=== PATIENT | male | born 1980 | race African-American/Black ===

== ENCOUNTER 2019-08-27 11:24 | Emergency (ER) | payer SELFPAY ==
--- NOTE | 2019-08-27 12:21 | ER ---
Nurse's Notes [facility] Name: Carlton Hightower Age: 39 yrs Sex: Male : 1980 Arrival Date: 08/27/2019 Time: 11:25 Bed 10 Private MD: Diagnosis: Acute upper respiratory infection, unspecified;Fever, unspecified Presentation: 08/27 11:40 Presenting complaint: Patient states: Cough chest congestion , sneezing, and fever, sg reports having weakness that began yesterday, reports having sinus pain as well. Transition of care: patient was not received from another setting of care. Onset of symptoms was August 27, 2019. Risk Assessment: Do you want to hurt yourself or someone else? Patient reports no desire to harm self or others. Initial Sepsis Screen: Does the patient meet any 2 criteria? No. Patient's initial sepsis screen is negative. Does the patient have a suspected source of infection? No. Patient's initial sepsis screen is negative. Care prior to arrival: None. 11:40 Method Of Arrival: Ambulatory sg 11:40 Acuity: SAILAJA 4 sg Triage Assessment: 12:20 General: Appears in no apparent distress. Behavior is calm, cooperative. iw Historical: - Allergies: 11:41 No Known Allergies; sg - Home Meds: 11:41 None [Active]; sg - PMHx: 11:41 None; sg - PSHx: 11:41 None; sg - Immunization history:: Adult Immunizations not up to date. - Social history:: Smoking status: Patient uses tobacco products. - Ebola Screening: : Patient negative for fever greater than or equal to 101.5 degrees Fahrenheit, and additional compatible Ebola Virus Disease symptoms Patient denies exposure to infectious person Patient denies travel to an Ebola-affected area in the 21 days before illness onset No symptoms or risks identified at this time. - Family history:: not pertinent. Screenin:00 Abuse screen: Denies threats or abuse. Denies injuries from another. Nutritional iw screening: No deficits noted. Tuberculosis screening: No symptoms or risk factors identified. Fall Risk None identified. Assessment: 12:00 General: Appears in no apparent distress. iw 12:00 Pain: Denies pain. Neuro: Level of Consciousness is awake, alert, obeys commands, iw Oriented to person, place, time, situation, Moves all extremities. Full function. Cardiovascular: Patient's skin is warm and dry. Respiratory: Reports cough that is Airway is patent Respiratory effort is even, unlabored, Respiratory pattern is regular, symmetrical. Derm: Skin is intact, is healthy with good turgor. Musculoskeletal: Range of motion: intact in all extremities. Vital Signs: 11:40 Pulse 84 MON; Resp 18; Temp 98.7(TE); Pulse Ox 98% on R/A; Weight 65.77 kg; Height 5 sg ft. 4 in. (162.56 cm); 11:41 BP 145 / 90; sg 11:40 Body Mass Index 24.89 (65.77 kg, 162.56 cm) sg ED Course: 11:25 Patient arrived in ED. am2 11:39 Arm band placed on. sg 11:41 Triage completed. sg 12:00 Patient has correct armband on for positive identification. iw 12:02 Casandra Devries, RN is Primary Nurse. iw 12:10 Luis Alfredo Gallego MD is Attending Physician. [facility] 12:34 No provider procedures requiring assistance completed. Patient did not have IV access iw during this emergency room visit. Administered Medications: No medications were administered Outcome: 12:20 Discharge ordered by . poonam 12:34 Discharged to home ambulatory. iw 12:34 Condition: good 12:34 Discharge instructions given to patient, Instructed on discharge instructions, follow up and referral plans. medication usage, Demonstrated understanding of instructions, follow-up care, medications, Prescriptions given X 2. 12:35 Patient left the ED. iw Signatures: Jerome Gomez RN RN Luis Alfredo Gallego MD MD cha Williams, Irene, RN RN Dorothea Eastman am2 Corrections: (The following items were deleted from the chart) 18:13 18:12 General: Appears in no apparent distress. iw iw
--- NOTE | 2019-08-27 12:21 | EDPHYS ---
Physician Documentation [facility] Name: Carlton Hightower Age: 39 yrs Sex: Male : 1980 Arrival Date: 08/27/2019 Time: 11:25 Bed 10 Private MD: TOMAS Physician Luis Alfredo Gallego HPI: 08/27 12:16 This 39 yrs old Black Male presents to ER via Ambulatory with complaints of Runny Nose, poonam Fever. 12:16 The patient or guardian reports cough, flu symptoms, arthralgias, low-grade fever, poonam myalgias. Onset: The symptoms/episode began/occurred 1 day(s) ago. Severity of symptoms: At their worst the symptoms were mild, in the emergency department the symptoms are unchanged. Modifying factors: The symptoms are alleviated by nothing, the symptoms are aggravated by nothing. Associated signs and symptoms: Pertinent positives: fever, rhinorrhea, sore throat. The patient has experienced similar episodes in the past, a few times. Historical: - Allergies: 11:41 No Known Allergies; sg - Home Meds: 11:41 None [Active]; sg - PMHx: 11:41 None; sg - PSHx: 11:41 None; sg - Immunization history:: Adult Immunizations not up to date. - Social history:: Smoking status: Patient uses tobacco products. - Ebola Screening: : Patient negative for fever greater than or equal to 101.5 degrees Fahrenheit, and additional compatible Ebola Virus Disease symptoms Patient denies exposure to infectious person Patient denies travel to an Ebola-affected area in the 21 days before illness onset No symptoms or risks identified at this time. - Family history:: not pertinent. ROS: 12:16 Eyes: Negative for injury, pain, redness, and discharge, ENT: Negative for injury, poonam pain, and discharge, Neck: Negative for injury, pain, and swelling, Cardiovascular: Negative for chest pain, palpitations, and edema, Abdomen/GI: Negative for abdominal pain, nausea, vomiting, diarrhea, and constipation, Back: Negative for injury and pain, : Negative for injury, bleeding, discharge, and swelling, MS/Extremity: Negative for injury and deformity, Skin: Negative for injury, rash, and discoloration, Neuro: Negative for headache, weakness, numbness, tingling, and seizure, Psych: Negative for depression, anxiety, suicide ideation, homicidal ideation, and hallucinations, Allergy/Immunology: Negative for hives, rash, and allergies, Endocrine: Negative for neck swelling, polydipsia, polyuria, polyphagia, and marked weight changes, Hematologic/Lymphatic: Negative for swollen nodes, abnormal bleeding, and unusual bruising. 12:16 Constitutional: Positive for fever. 12:16 Respiratory: Positive for cough, with no reported sputum. Exam: 12:16 Constitutional: This is a well developed, well nourished patient who is awake, alert, poonam and in no acute distress. Head/Face: Normocephalic, atraumatic. Eyes: Pupils equal round and reactive to light, extra-ocular motions intact. Lids and lashes normal. Conjunctiva and sclera are non-icteric and not injected. Cornea within normal limits. Periorbital areas with no swelling, redness, or edema. Neck: Trachea midline, no thyromegaly or masses palpated, and no cervical lymphadenopathy. Supple, full range of motion without nuchal rigidity, or vertebral point tenderness. No Meningismus. Chest/axilla: Normal chest wall appearance and motion. Nontender with no deformity. No lesions are appreciated. Cardiovascular: Regular rate and rhythm with a normal S1 and S2. No gallops, murmurs, or rubs. Normal PMI, no JVD. No pulse deficits. Respiratory: Lungs have equal breath sounds bilaterally, clear to auscultation and percussion. No rales, rhonchi or wheezes noted. No increased work of breathing, no retractions or nasal flaring. Abdomen/GI: Soft, non-tender, with normal bowel sounds. No distension or tympany. No guarding or rebound. No evidence of tenderness throughout. Back: No spinal tenderness. No costovertebral tenderness. Full range of motion. Male : Normal genitalia with no discharge or lesions. Skin: Warm, dry with normal turgor. Normal color with no rashes, no lesions, and no evidence of cellulitis. MS/ Extremity: Pulses equal, no cyanosis. Neurovascular intact. Full, normal range of motion. Neuro: Awake and alert, GCS 15, oriented to person, place, time, and situation. Cranial nerves II-XII grossly intact. Motor strength 5/5 in all extremities. Sensory grossly intact. Cerebellar exam normal. Normal gait. Psych: Awake, alert, with orientation to person, place and time. Behavior, mood, and affect are within normal limits. 12:16 ENT: Posterior pharynx: Airway: normal, no evidence of obstruction, Tonsils: with erythema, Uvula: normal, midline, non-edematous, no erythema, swelling, is not appreciated, erythema, is not appreciated, exudate, is not appreciated. 12:16 Respiratory: the patient does not display signs of respiratory distress, Respirations: normal, Breath sounds: are clear throughout, no bronchial sounds, no decreased breath sounds, no rales, rhonchi, no stridor, no wheezing. Vital Signs: 11:40 Pulse 84 MON; Resp 18; Temp 98.7(TE); Pulse Ox 98% on R/A; Weight 65.77 kg; Height 5 sg ft. 4 in. (162.56 cm); 11:41 BP 145 / 90; sg 11:40 Body Mass Index 24.89 (65.77 kg, 162.56 cm) MDM: 12:10 Patient medically screened. [facility] 12:18 Data reviewed: vital signs, nurses notes, lab test result(s). [facility] 08/27 11:44 Order name: Flu; Complete Time: 12:19 08/27 11:44 Order name: Strep; Complete Time: 12:15 08/27 12:12 Order name: Throat Culture EDMS Administered Medications: No medications were administered Disposition: 08/27/19 12:20 Discharged to Home. Impression: Acute upper respiratory infection, unspecified, Fever, unspecified. - Condition is Stable. - Discharge Instructions: Fever, Adult, Upper Respiratory Infection, Adult, Cool Mist Vaporizer, Upper Respiratory Infection, Adult, [id number], Cough, Adult. - Prescriptions for Zithromax Z- Fabricio 250 mg Oral Tablet - take 1 tablet by ORAL route as directed for 5 days Day 1 - take two (2) tablets one time. Day 2, 3, 4 , 5 take one (1) tablet once daily.; 6 tablet. Tamiflu 75 mg Oral Capsule - take 1 tablet by ORAL route every 12 hours for 5 days; 10 tablet. - Medication Reconciliation Form, Thank You Letter, Antibiotic Education, Prescription Opioid Use, Work release form form. - Follow up: Private Physician; When: 2 - 3 days; Reason: Recheck today's complaints, Continuance of care, Re-evaluation by your physician. - Problem is new. - Symptoms have improved. Signatures: Dispatcher [employer] EDJerome Menard, RN RN Luis Alfredo Alvarez MD MD cha Williams, Irene, RN RN iw Corrections: (The following items were deleted from the chart) 12:35 12:20 08/27/2019 12:20 Discharged to Home. Impression: Acute upper respiratory iw infection, unspecified; Fever, unspecified. Condition is Stable. Forms are Medication Reconciliation Form, Thank You Letter, Antibiotic Education, Prescription Opioid Use. Follow up: Private Physician; When: 2 - 3 days; Reason: Recheck today's complaints, Continuance of care, Re-evaluation by your physician. Problem is new. Symptoms have improved. poonam
[2019-08-27 12:41] VITALS: TEMP 98.7; O2SAT 98
[2019-08-27 12:42] VITALS: BP 145/90
== END 2019-08-27 12:35 | disposition home or self-care (01) ==
LOC: ER 11:24
DX: R50.9 Fever, unspecified (principal); J06.9 Acute upper respiratory infection, unspecified; Z72.0 Tobacco use
CPT/HCPCS: 87070; 87081; 87804; 99282